=== PATIENT | male | born 1955 | race Caucasian/White ===

== ENCOUNTER → 2022-10-29 | Day surgery (SDC) | payer OTHER ==
[2022-10-28 12:13] LABS: BASOPHILS # (AUTO) 0.1 (0.0-0.1); BASOPHILS % 0.9 % (0.0-1.0); EOSINOPHILS # (AUTO) 0.3 (0.0-0.4); EOSINOPHILS % 4.4 % (0.0-6.0); HEMATOCRIT 43.4 % (38.2-49.6); HEMOGLOBIN 14.1 g/dL (14.0-18.0); LYMPHOCYTES # (AUTO) 2.1 (1.0-3.2); MEAN CORPUSCULAR HGB CONC 32.5 g/dL (31-35); MEAN CORPUSCULAR VOLUME 98.6 fL (81-99); MONOCYTES # (AUTO) 0.6 (0.2-0.8); MONOCYTES % 9.6 % (4.4-11.3); NEUTROPHILS # (AUTO) 3.6 (2.1-6.9); NEUTROPHILS % 53.5 % (38.7-80.0); PLATELET COUNT 274 x10e3/uL (140-360)
[~2022-10-29] MED LIST: AMLODIPINE BESYL5 MG PO; ATORVASTATIN CA20 MG PO; CYMBALTA30 MG; EPHEDRINE SULFATE INJ 50 MG/ML VIAL ONE; FISH OIL 1,0001 EAC7; FOLIC ACID0.4 MG PO; LIDOCAINE HCL 2% LOCAL INJ 5 ML SDV VIAL INJ ONE; MAGNESIUM; METOCLOPRAMIDE HCL 10 MG/2ML VIAL ONE; OMEPRAZOLE20 MG; POVIDONE IODINE 0.05% 0.05 % ML PO ONE; PROPOFOL IV EMULSION 10 MG/ML 20 ML VIAL ONE; TERBINAFINE HC250 MG PO; TRAZODONE HCL150 MG; VALACYCLOVIR500 MG PO; VITAMIN B-121000 MCG PO; VITAMIN D; ZINC
[2022-10-29 16:00] VITALS: BP 135/77
[2022-11-03 06:11] LABS: ENDOMYSIAL ANTIBODIES, IGA Negative (Negative)
== END | disposition home or self-care (01) ==
LOC: OR 10:55
PROVIDERS: ATTEND Internal Medicine Gastroenterology
DX: K52.9 Noninfective gastroenteritis and colitis, unspecified (principal); D12.2 Benign neoplasm of ascending colon; K62.89 Other specified diseases of anus and rectum; K64.8 Other hemorrhoids; K21.9 Gastro-esophageal reflux disease without esophagitis; Z71.3 Dietary counseling and surveillance; E73.9 Lactose intolerance, unspecified; E78.00 Pure hypercholesterolemia, unspecified; I10 Essential (primary) hypertension; Z71.89 Other specified counseling; B00.9 Herpesviral infection, unspecified; G47.00 Insomnia, unspecified; M19.90 Unspecified osteoarthritis, unspecified site; Z01.810 Encounter for preprocedural cardiovascular examination; Z01.812 Encounter for preprocedural laboratory examination; Z79.899 Other long term (current) drug therapy; Z68.31 Body mass index [BMI] 31.0-31.9, adult; Z85.46 Personal history of malignant neoplasm of prostate
CPT/HCPCS: 36415; 45380; 45385; 82784; 83516; 83630; 83993; 85025; 86256; 87045; 87177; 87324; 87328; 87449; 93005; J2001; J2704; J2765; 45378